=== PATIENT | female | born 1980 | race Caucasian/White ===

== ENCOUNTER 2020-09-27 16:29 | Emergency (ER) | payer BC, SELFPAY ==
[2020-09-27 16:30] VITALS: BP 126/78; PULSE 87; RESP 14; TEMP 36.4; O2SAT 96; BMI 43.0
--- NOTE | 2020-09-27 16:47 | HMH.EDUTC ---
[facility] [place] Disposition Clinical Impression: Exposure to COVID-19 virus, Viral pharyngitis Disposition: Home, Self-Care Condition on Discharge: Good Instructions: DI for Viral Pharyngitis, Preventing the Spread of Coronavirus Discharge Instructions Additional Instructions: Drink plenty of fluids. Take tylenol for pain or fever. Return if you begin to have difficulty breathing. Follow up with your regular doctor. GO TO THE ER FOR ANY WORSENING SYMPTOMS Referrals: Akbar Canseco MD [Primary Care Provider] - Time of Disposition: 16:49 Medical Decision Making - Medical Records Medical records reviewed: No: I reviewed the patient's medical records. - Giuseppe Inquiry Pt receiving controlled substance: No Vital Signs: 09/27/20 16:30 09/27/20 16:52 Temperature 97.6 F 97.6 F Temperature Source Oral Pulse Rate 87 Pulse Rate [Right Brachial] 87 Respiratory Rate 14 14 Blood Pressure 126/78 Blood Pressure [Right Arm] 126/78 Blood Pressure Mean [Right Arm] 94 Blood Pressure Source [Right Arm] Automatic Cuff Blood Pressure Position [Right Arm] Sitting 02 Sat by Pulse Oximetry 96 Oxygen Delivery Method Room Air Orders (Tests/Meds): ORDERS Category Date Time Status Covid-19 Nasal PCR ([facility]) Routine Lab 09/27/20 16:45 Received [facility] [place] HPI - General Stated complaint: sore throat covid test Time Seen by Provider: 09/27/20 16:47 - History of Present Illness Provider Complaint: She states that she has had a sore throat for the past 1 day. Her employer wanted her to get tested for covid-19 just to be safe. She denies any fever, chills, body aches, cough and other symptoms. - Related Data Allergies Allergy/AdvReac Type Severity Reaction Status Date / Time No Known Allergies Allergy Verified 09/27/20 17:38 [facility] History - Hepatitis A Screen Attestation statement:: This patient has been screened for Hepatitis A risk factors. I have reviewed the patient's past medical history: Yes ROS Obtained: Yes All systems reviewed & no additional complaints - Constitutional Constitutional: Denies body ache, Denies chills, Denies fever(s), Denies poor appetite, Denies malaise - Eyes Eyes: Reports system reviewed and no additional complaints, except as docu - ENT Ears, Nose, Mouth, and Throat: Reports system reviewed and no additional complaints, except as docu - Cardiovascular Cardiovascular: Reports system reviewed and no additional complaints, except as docu - Respiratory Respiratory: Reports system reviewed and no additional complaints, except as docu - Gastrointestinal Gastrointestingal: Reports: system reviewed and no additional complaints, except as docu Physical Exam - General General appearance: alert, in no apparent distress - Head Head exam: atraumatic, normocephalic, normal inspection - Eye Eye exam: Present: normal appearance, PERRL, EOMI - ENT ENT exam: Present: normal exam, normal oropharynx, mucous membranes moist, TM's normal bilaterally, normal external ear exam - Neck Neck exam: Present: normal inspection, full ROM, trachea midline. Absent: meningismus, lymphadenopathy - Chest Chest inspection: Present: normal inspection, symmetric chest wall rise. Absent: tenderness - Respiratory Respiratory exam: Present: normal lung sounds bilaterally. Absent: respiratory distress - Cardiovascular Cardiovascular exam: Present: regular rate, normal rhythm. Absent: JVD - Abdominal Exam Abdominal exam: Present: soft, normal bowel sounds. Absent: distention, tenderness, guarding - Extremities Exam Extremities exam: Present: normal inspection, full ROM, normal capillary refill. Absent: calf tenderness - Back Exam Back exam: Present: normal inspection. Absent: tenderness - Neurological Exam Neurological exam: Present: alert, oriented X3 - Psychiatric Psychiatric exam: Present: normal affect, normal mood - Skin Skin exam: Present: warm, dry, inta
[2020-09-27 16:52] VITALS: BP 126/78; PULSE 87; RESP 14; TEMP 36.4; O2SAT 96
== END 2020-09-27 16:55 | disposition home or self-care (01) ==
PROVIDERS: Emergency Provider Nurse Practitioner Family; PCP Family Medicine
DX: Z20.822 Contact with and (suspected) exposure to COVID-19 (principal); J02.9 Acute pharyngitis, unspecified
CPT/HCPCS: 99202; G0463; U0003

== ENCOUNTER 2023-10-31 07:52 | Outpatient (CLI) | payer BC, SELFPAY ==
--- NOTE | 2023-10-31 07:52 | MM_ITS ---
PROCEDURE INFORMATION: Exam: MG Bilateral Screening 3D Mammography Exam date and time: 10/31/2023 7:55 AM Age: 43 years old Clinical indication: Screening. History of left cyst aspiration. TECHNIQUE: Imaging protocol: Bilateral Screening tomosynthesis and 2D mammography including computer-aided detection (CAD) when performed. COMPARISON: No relevant prior studies available. If prior mammograms are provided, I am happy to add an addendum. FINDINGS: MAMMOGRAPHY: Breast composition: There are scattered areas of fibroglandular density. Mass: In the right breast, oval 0.8 cm mass at 12 o'clock anterior 3rd. In the left breast, slightly lobulated 1.6 cm mass with macro calcifications in the upper inner quadrant posterior 3rd. Architectural distortion: None. Calcifications: No suspicious calcifications. Asymmetric density: None. Skin thickening: None. Axillary adenopathy: None. IMPRESSION: Comparison to prior mammograms will be most helpful. If these are not provided within 2 weeks, patient will be recalled for bilateral sonography for further evaluation of bilateral breast masses. ASSESSMENT: BI-RADS Category 0: Incomplete- Need Additional Imaging Evaluation and/or Prior Mammograms for Comparison
[2023-10-31 09:07] LABS: Basophils % 0.7 % (0.1-2.0); Eosinophils # 0.5 K/mm3 (0.0-0.4); Hematocrit 42.4 % (37.0-47.0); Hemoglobin 13.4 g/dL (12.2-16.2); Lymphocytes # 2.1 K/mm3 (0.7-4.5); Lymphocytes % 34.6 % (10-50); Mean Corpuscular HGB Conc 31.7 g/dL (31.8-35.4); Mean Corpuscular Hemoglobin 26.8 pg (27.0-31.2); Mean Corpuscular Volume 84.7 fl (81-99); Monocytes # 0.3 K/mm3 (0.1-1.0); Monocytes % 4.7 % (1.7-9.3); Neutrophils # 3.2 K/mm3 (1.8-7.8); Neutrophils % 52.1 % (37.0-80.0); Platelet Count 269 K/mm3 (142-424); Red Cell Distribution Width 13.5 % (11.5-17.5); White Blood Count 6.2 K/mm3 (4.8-10.8)
[2023-10-31 09:55] LABS: Alanine Aminotransferase 55 U/L (12-78); Albumin Level 4.1 g/dl (3.5-5.0); Alkaline Phosphatase 74 U/L (38-126); Aspartate Amino Transferase 77 U/L (14-36); Bilirubin,Total 0.5 mg/dl (0.2-1.3); Blood Urea Nitrogen 9 mg/dl (7-17); Calcium 9.2 mg/dl (8.4-10.2); Carbon Dioxide 32 mmol/L (22.0-30.0); Chloride 105 mmol/L (98-107); Chol/HDL Ratio 4.3 (1-3.5); Cholesterol 191 mg/dl (140-200); Estimated Glomerular Filt Rate 92 ml/min (>60); GFR (African American) 112 ML/MIN (>60); Globulin 2.1 g/dL (1.3-3.2); Glucose 94 mg/dl (74-100); HDL Cholesterol 44 mg/dl (40-60); Sodium 141 mmol/L (136-145); Total Protein,Serum 6.2 g/dl (6.3-8.2); Triglycerides 98 mg/dl (30-150); VLDL Cholesterol 20 mg/dL (0-40)
[2023-10-31 10:05] LABS: Direct LDL Cholesterol 107.57 mg/dL (100-129)
== END 2023-10-31 23:59 ==
PROVIDERS: PCP Family Medicine; Visit Provider Nurse Practitioner Obstetrics & Gynecology
DX: Z01.419 Encounter for gynecological examination (general) (routine) without abnormal findings (principal); Z12.31 Encounter for screening mammogram for malignant neoplasm of breast
CPT/HCPCS: 36415; 77063; 77067; 80053; 80061; 85025

== ENCOUNTER 2023-11-09 12:50 | Outpatient (CLI) | payer BC, SELFPAY ==
--- NOTE | 2023-11-09 12:50 | US_ITS ---
PROCEDURE INFORMATION: Exam: US Right Breast, Complete US Left Breast, Complete Exam date and time: 11/09/2023 1:14 PM Age: 43 years old Clinical indication: Patient recalled for further evaluation of bilateral breast masses TECHNIQUE: Imaging protocol: Complete ultrasound of all four quadrants of the right breast and the retroareolar regions, including ultrasound of the axilla when performed. Complete ultrasound of all four quadrants of the left breast and the retroareolar regions, including ultrasound of the axilla when performed. COMPARISON: MG MM DIG SCREENING MAMM BI W/CAD 10/31/2023 7:55 AM FINDINGS: Sonographic images of both breasts including the retroareolar regions, all 4 quadrants and the axilla demonstrates a benign partially calcified fibroadenoma in the left 11 o'clock axis 7 cm from the nipple measuring 1.7 x 1.3 x 0.9 cm. Sonographic images of the right 12 o'clock axis 3 cm from the nipple demonstrates a well-circumscribed uniformly hypoechoic ovoid solid mass corresponding to the mass on mammography. It measures 0.6 x 0.5 x 0.9 cm in dimension and is probably benign in etiology, reflecting an additional fibroadenoma. No other solid or cystic masses are noted in either breast. No architectural distortion or acoustical shadowing. No skin thickening or axillary adenopathy. IMPRESSION: 1. Probably benign right breast mass. A six-month follow-up diagnostic right mammogram is recommended to ensure stability over time 2. Benign left breast mass ASSESSMENT: BI-RADS Category 3: Probably benign.
== END 2023-11-09 23:59 ==
LOC: RAD 12:50
PROVIDERS: PCP Family Medicine; Visit Provider Nurse Practitioner Obstetrics & Gynecology
DX: N63.10 Unspecified lump in the right breast, unspecified quadrant (principal); N63.20 Unspecified lump in the left breast, unspecified quadrant; R92.8 Other abnormal and inconclusive findings on diagnostic imaging of breast
CPT/HCPCS: 76641

== ENCOUNTER 2024-05-14 12:50 | Outpatient (CLI) | payer BC, SELFPAY ==
--- NOTE | 2024-05-14 12:51 | MM_ITS ---
PROCEDURE INFORMATION: Exam: MG Right Diagnostic Breast Tomosynthesis Exam date and time: 05/14/2024 12:48 PM Age: 43 years old Clinical indication: Short-term radiographic followup; Right breast; mass TECHNIQUE: Imaging protocol: Right Diagnostic tomosynthesis and 2D mammography including computer-aided detection (CAD) when performed. Unilateral or bilateral exam. COMPARISON: 1. MG MM DIG SCREENING MAMM BI W/CAD 10/31/2023 7:55 AM 2. US BREAST RT COMPLETE 11/09/2023 1:14 PM FINDINGS: MAMMOGRAPHY: Breast composition: There are scattered areas of fibroglandular density. Breast mammogram findings: There is no stellate mass, architectural distortion or suspicious microcalcifications to suggest malignancy. Stable 0.8 cm mass in the right anterior 12 o'clock axis. No skin thickening or axillary adenopathy. IMPRESSION: Stable probably benign right breast mass compared to prior mammogram dated 10/31/2023. A six-month follow-up diagnostic bilateral mammogram is recommended for continued close felt the right-sided mass as well as part of an annual screening schedule ASSESSMENT: BI-RADS Category 3: Probably benign.
== END 2024-05-14 23:59 | disposition home or self-care (01) ==
LOC: RAD 12:51
PROVIDERS: PCP Family Medicine; Visit Provider Nurse Practitioner Obstetrics & Gynecology
DX: N63.10 Unspecified lump in the right breast, unspecified quadrant (principal); R92.8 Other abnormal and inconclusive findings on diagnostic imaging of breast
CPT/HCPCS: 77061; 77065; G0279

== ENCOUNTER 2024-09-07 08:10 | Emergency (ER) | payer BC, SELFPAY ==
--- NOTE | 2024-09-07 08:26 | EXP.UTC ---
Discharge Plan Disposition Patient Disposition: Home, Self-Care Condition: Good Prescriptions Prescriptions: New promethazine-DM 6.25-15 mg/5 mL Syrup 5 ml PO Q6H PRN (Reason: Cough) Qty: 240 0RF azithromycin [Zithromax] 250 mg tablet 250 mg PO UD DOSE PK Qty: 6 0RF Rx Instructions: Take two (2) tablets today, then one (1) tablet days #2 thru #5 benzonatate 100 mg capsule 100 mg PO TIDP PRN (Reason: Cough) Qty: 30 0RF methylprednisolone 4 mg Tablets,Dose Pack 4 mg PO DIRECTED 6 Days Qty: 21 0RF Rx Instructions: Take 1 pack as directed for 6 days Referrals Follow up/Referrals: Cale Clay MD [Primary Care Provider] - See instructions Activity Restrictions/Add. Instructions Additional Instructions/Restrictions: Drink plenty of fluids. Take tylenol or ibuprofen for pain or fever. Take the medications as directed. Follow up with your regular doctor. GO TO THE ER FOR ANY WORSENING SYMPTOMS The cough medication (promethazine dm) will make you drowsy, so don't drive or operate heavy machinery after taking it. The tessalon perles (benzonatate) should not make you drowsy. Clinical Impressions Clinical Impression: Acute bronchitis Instructions Patient Instructions: DI for Acute Bronchitis, Promethazine Print Language Print Language: Ukrainian Discharge ED Provider: Lisandro Centeno [facility] [place] HPI General Stated complaint: cough, congestion Time Seen by Provider: 09/07/24 08:26 Related Data Previous Rx's ?Medication ?Instructions ?Recorded azithromycin 250 mg tablet 250 mg PO UD DOSE PK #6 tabs 09/07/24 (Zithromax) benzonatate 100 mg capsule 100 mg PO TIDP PRN Cough #30 caps 09/07/24 methylprednisolone 4 mg tablets in 4 mg PO DIRECTED 6 days #21 tabs 09/07/24 a dose pack promethazine-DM 6.25 mg-15 mg/5 mL 5 ml PO Q6H PRN Cough #240 mL 09/07/24 oral syrup Allergies Allergy/AdvReac Type Severity Reaction Status Date / Time No Known Allergies Allergy Verified 10/05/23 13:41 [facility] Disclaimer: The information contained in this section may have been updated after the patient was seen, as this information can be updated by other users. Medical History (Updated 09/07/24 @ 09:11 by Lisandro Centeno APRN) No significant past medical history Surgical History (Updated 10/05/23 @ 13:42 by ANKUR Herman) No significant past surgical history Family History (Updated 10/05/23 @ 13:42 by ANKUR Herman) Other No significant family history Social History Smoking Status: Never smoker alcohol intake: current alcohol intake frequency: holidays/special occasions only current occupational status: other Travel in the last 8 weeks: None Have you lived/traveled outside [place] in past 30 days?: No Contact w/someone who lives/traveled outside [place] past 30 days?: No Exposure to someone with infectious disease in past 14 days?: No Do you have a fever (greater than 100.4 F or 38 C)?: No Have you tested positive for COVID-19: No Exposed to someone with COVID-19 in past 14 days?: No Do you have a sore throat?: No Do you have a cough?: Yes Do you have any weakness?: No Do you have any diarrhea?: No Are you experiencing any unusual bleeding?: No Do you have any muscle aches/pain?: No Do you have any abdominal pain?: No Are you experiencing loss of taste or smell?: No ROS Obtained: Yes All systems reviewed & no additional complaints except as documented Constitutional Constitutional: Reports poor appetite Eyes Eyes: Reports system reviewed and no additional complaints, except as documented ENT Ears, Nose, Mouth, and Throat: Reports as per HPI Cardiovascular Cardiovascular: Reports system reviewed and no additional complaints, except as documented and Denies chest pain Respiratory Respiratory: Denies shortness of breath, Reports chest congestion, Reports cough, Denies stridor and Denies wheezing Gastrointestinal Gastrointestingal: Reports system reviewed and no additional complaints, except as documented; Denies abdominal pain, diarrhea or vomiting Musculoskeletal Musculoskeletal: Reports system reviewed and no additional complaints, except as documented and Denies arthralgias Integumentary/Breasts Skin/Breast: Reports system reviewed and no additional complaints, except as documented and Denies rash Neurologic Neurologic: Denies paresthesias Allergic/Immunologic Allergic/Immunologic: Denies wheezing Physical Exam General General appearance: alert and in no apparent distress Eye Eye exam: Present normal appearance, PERRL and EOMI ENT ENT exam: Present mucous membranes moist and normal external ear exam Expanded ENT Exam External ear exam: Present normal external inspection TM/Canal exam: Bilateral TM: erythema and bulging Nose exam: Absent sinus tenderness Nasal speculum exam: Bilateral: normal Mouth exam: Present normal external inspection; Absent drooling Teeth exam: Present normal inspection Throat exam: Present tonsillar erythema and tonsillomegaly Neck Neck exam: Present normal inspection, full ROM and trachea midline; Absent tenderness, lymphadenopathy or thyromegaly Chest Chest inspection: Present normal inspection and symmetric chest wall rise; Absent tenderness or rash Respiratory Respiratory exam: Present normal lung sounds bilaterally; Absent respiratory distress, wheezes, stridor or accessory muscle use Cardiovascular Cardiovascular exam: Present regular rate, normal rhythm and normal heart sounds Abdominal Exam Abdominal exam: Present soft; Absent distention, tenderness, guarding, rebound or rigidity Extremities Exam Extremities exam: Present normal inspection, full ROM and normal capillary refill; Absent tenderness or calf tenderness Back Exam Back exam: Present normal inspection and full ROM; Absent tenderness Neurological Exam Neurological exam: Present alert and oriented X3 Psychiatric Psychiatric exam: Present normal affect and normal mood Skin Skin exam: Present warm, dry, intact and normal color Lymphatic Lymphatic Findings: no adenopathy Medical Decision Making Medical Records Medical records reviewed: No I reviewed the patient's medical records. Screening: Per USPSTF and CDC recommendations, given the prevalence of disease in our region, it is our hospital?s policy to screen for HIV and viral Hepatitis for all patients aged 18 and over and those with ongoing risk factors. Giuseppe Inquiry Pt receiving controlled substance: No Lab Data Lab results reviewed: Yes I reviewed the patient's lab results.
[2024-09-07 08:37] VITALS: BP 142/85; PULSE 117; RESP 20; TEMP 36.9; O2SAT 95; BMI 44.1
[2024-09-07 09:12] VITALS: BP 142/85; PULSE 117; RESP 20; TEMP 36.9
== END 2024-09-07 09:15 | disposition home or self-care (01) ==
PROVIDERS: Emergency Provider Nurse Practitioner Family; PCP Family Medicine
DX: J20.9 Acute bronchitis, unspecified (principal); R63.8 Other symptoms and signs concerning food and fluid intake; R09.89 Other specified symptoms and signs involving the circulatory and respiratory systems; R05.9 Cough, unspecified
CPT/HCPCS: 99212; G0381